=== PATIENT | female | born 2000 | race Caucasian/White ===

== ENCOUNTER 2019-05-07 23:59 | Emergency (ER) | payer MEDICAID ==
[~2019-05-07] VITALS: Ht 167.6 cm; Wt 94.5 kg
[2019-05-08 00:03] VITALS: Ht 167.6 cm; Wt 94.5 kg
[2019-05-08] MEDS ORDERED: ULTRAM50 MG PO (00:04)
[2019-05-08] MEDS ORDERED: KLONOPIN1 MG PO (00:04)
[2019-05-08] MEDS ORDERED: PROZAC40 MG PO (00:04)
[2019-05-08 00:38] LABS: BASOPHILS 0.2 % (0-2); EOSINOPHILS 1.5 % (0-7); HEMATOCRIT 38.1 % (36.0-48.0); HEMOGLOBIN 12.8 g/dL (12-16); IMMATURE GRANULOCYTES 0.4 % (0-5); LYMPHOCYTES 23.7 % (15-50); MCH 29.8 pg (26.0-34.0); MCHC 33.6 g/dL (31.0-37.0); MCV 88.6 fL (80.0-100.0); MEAN PLATELET VOLUME 10.4 fL (7.4-10.4); MONOCYTES 7.2 % (2-11); PLATELET COUNT 288 10x3/uL (130-400); RDW 13.2 % (11.5-14.5); WBC 11.4 10x3/uL (4.8-10.8)
[2019-05-08 00:46] LABS: ALBUMIN 3.7 g/dL (3.4-5.0); ALKALINE PHOSPHATASE 74 U/L (46-116); ALT (SGPT) 20 U/L (10-68); BILIRUBIN - TOTAL 0.21 mg/dL (0.2-1.3); CALC OSMOLALITY 276 mosm/kg (275-300); CALCIUM 8.5 mg/dL (8.5-10.1); CARBON DIOXIDE 26.5 mmol/L (21.0-32.0); CHLORIDE - SERUM 104 mmol/L (98-107); CREATININE - SERUM 0.9 mg/dL (0.6-1.3); GLUCOSE 100 mg/dL (74-106); POTASSIUM - SERUM 3.4 mmol/L (3.5-5.1); PROTEIN - SERUM 8.3 g/dL (6.4-8.2); SODIUM 140 mmol/L (136-145); UREA NITROGEN 7 mg/dL (7-18); eGFR NON AFRICAN AMERICAN 85 mL/min (90-120)
[2019-05-08 00:49] LABS: APPEARANCE CLEAR (CLEAR); BILIRUBIN NEGATIVE (NEGATIVE); COLOR STRAW (YELLOW); GLUCOSE NEGATIVE (NEGATIVE); KETONE NEGATIVE (NEGATIVE); NITRITE NEGATIVE (NEGATIVE); PROTEIN NEGATIVE (NEGATIVE); SPECIFIC GRAVITY 1.005 (1.005-1.020); UROBILINOGEN NORMAL (NORMAL)
[2019-05-08 00:51] LABS: BACTERIA MODERATE /hpf (NONE SEEN); EPITHELIAL CELLS 0-5 /hpf (0-5); HCG URINE NEGATIVE (NEGATIVE); RED CELLS - URINE 0-5 /hpf (0-5); WHITE CELLS - URINE 0-5 /hpf (0-5)
[2019-05-08 00:59] LABS: HCG - QUANTITATIVE (MATERNAL) 0 mIU/mL
[2019-05-08] MEDS ORDERED: DICLOFENAC SODI50 MG PO (01:18)
[2019-05-08 01:20] VITALS: BP 131/74
== END 2019-05-08 01:21 | disposition home or self-care (01) ==
LOC: D.ER 23:59
PROVIDERS: Family Medicine
DX: N60.31 Fibrosclerosis of right breast (principal)

== ENCOUNTER 2019-05-14 06:51 | Emergency (ER) | payer MEDICAID ==
[~2019-05-14] VITALS: Ht 167.6 cm; Wt 92.7 kg
[~2019-05-14 06:51] MED LIST: DICLOFENAC SODI50 MG PO; KLONOPIN1 MG PO; PROZAC40 MG PO; ULTRAM50 MG PO
[2019-05-14 06:56] VITALS: Ht 167.6 cm; Wt 92.7 kg
[2019-05-14] MEDS ORDERED: VOLTAREN75 MG PO (07:18)
[2019-05-14 07:37] VITALS: BP 130/84
== END 2019-05-14 07:38 | disposition home or self-care (01) ==
LOC: D.ER 06:51
DX: N64.4 Mastodynia (principal)

== ENCOUNTER 2019-05-26 02:52 | Emergency (ER) | payer MEDICAID ==
[~2019-05-26] VITALS: Ht 167.6 cm; Wt 94.5 kg
[~2019-05-26 02:52] MED LIST changes: +VOLTAREN75 MG PO
[2019-05-26 02:57] VITALS: Ht 167.6 cm; Wt 94.5 kg
[2019-05-26] MEDS ORDERED: ULTRAM50 MG PO (04:03)
[2019-05-26 04:17] VITALS: BP 125/75
== END 2019-05-26 04:16 | disposition home or self-care (01) ==
LOC: D.ER 02:52
DX: N64.4 Mastodynia (principal); N60.12 Diffuse cystic mastopathy of left breast; N60.11 Diffuse cystic mastopathy of right breast

== ENCOUNTER 2021-01-27 15:18 | Emergency (ER) | payer BC ==
[~2021-01-27] VITALS: Ht 170.2 cm; Wt 113.6 kg
[2021-01-27 15:32] VITALS: BP 131/76; Ht 170.2 cm; Wt 113.6 kg
[2021-01-27] MEDS ORDERED: PRENAVITE1 TAB PO (15:35)
[2021-01-27 16:02] LABS: BASOPHILS 0.4 % (0-2); EOSINOPHILS 2.8 % (0-7); HEMATOCRIT 38.2 % (36.0-48.0); HEMOGLOBIN 12.4 g/dL (12-16); LYMPHOCYTES 20.8 % (15-50); MCH 28.8 pg (26.0-34.0); MCHC 32.4 g/dL (31.0-37.0); MCV 88.8 fL (80.0-100.0); MEAN PLATELET VOLUME 8.2 fL (7.4-10.4); MONOCYTES 7.1 % (2-11); NEUTROPHILS 68.9 % (40-80); PLATELET COUNT 313 10x3/uL (130-400); RBC 4.31 10x6/uL (4.00-5.40); WBC 12.4 10x3/uL (4.8-10.8)
[2021-01-27 16:04] LABS: BILIRUBIN NEGATIVE (NEGATIVE); KETONE NEGATIVE (NEGATIVE); NITRITE NEGATIVE (NEGATIVE); UROBILINOGEN NORMAL mg/dL (< 2)
[2021-01-27 16:05] LABS: HCG URINE NEGATIVE (NEGATIVE)
[2021-01-27 16:07] LABS: CALC OSMOLALITY 282 mosm/kg (275-300); CALCIUM 8.5 mg/dL (8.5-10.1); CARBON DIOXIDE 22.5 mmol/L (21.0-32.0); CHLORIDE - SERUM 106 mmol/L (98-107); CREATININE - SERUM 0.7 mg/dL (0.6-1.3); GLUCOSE 100 mg/dL (74-106); POTASSIUM - SERUM 3.7 mmol/L (3.5-5.1); SODIUM 141 mmol/L (136-145); UREA NITROGEN 17 mg/dL (7-18); eGFR NON AFRICAN AMERICAN > 90 mL/min (90-120)
[2021-01-27 16:07] LABS: BACTERIA FEW HPF (NONE SEEN); SQUAMOUS EPITHELIAL 0-5 HPF (0-4); WHITE CELLS - URINE 0-5 HPF (0-4)
[2021-01-27 16:20] LABS: ALBUMIN 3.4 g/dL (3.4-5.0); ALKALINE PHOSPHATASE 71 U/L (30-120); ALT (SGPT) 30 U/L (10-68); BILIRUBIN - TOTAL 0.21 mg/dL (0.2-1.3); HCG - QUANTITATIVE (MATERNAL) 0 mIU/mL; PROTEIN - SERUM 7.9 g/dL (6.4-8.2)
[2021-01-27] MEDS ORDERED: NAPROSYN500 MG PO (19:39)
== END 2021-01-27 20:12 | disposition home or self-care (01) ==
LOC: D.ER 15:18
PROVIDERS: Emergency Medicine
DX: N93.8 Other specified abnormal uterine and vaginal bleeding (principal); R10.30 Lower abdominal pain, unspecified; D72.829 Elevated white blood cell count, unspecified; N83.201 Unspecified ovarian cyst, right side